=== PATIENT | female | born 1975 | race Two or more races ===

== ENCOUNTER 2016-12-27 12:16 | Emergency (ER) | payer SELFPAY ==
[~2016-12-27] VITALS: Ht 157.5 cm; Wt 87.1 kg
[2016-12-27] MEDS ORDERED: HYDROcodone-ACET 10/325MG TAB PO ONE (13:15)
[2016-12-27 13:17] VITALS: BP 136/80
== END 2016-12-27 13:37 | disposition home or self-care (01) ==
LOC: ER 12:16
DX: K02.9 Dental caries, unspecified (principal)